=== PATIENT | female | born 1965 | race Caucasian/White ===

== ENCOUNTER → 2024-04-01 | Outpatient (CLI) | payer OTHER, SELFPAY ==
--- NOTE | 2024-04-01 07:30 | XR_ITS ---
Examination: CT maxillofacial, without intravenous contrast. 2-D sagittal reconstructions. 3-D reconstructions. Date and time of exam:April 01, 2024 0750 hours INDICATIONS: Sinus pressure and pain 2 years, bilateral joint clicking temporomandibular joints CTDI: vol (mGy):6.97 DLP: (mGycm):103 Technique: Multiple axial images of maxillofacial region, 3.0 mm slice thickness. 2-D sagittal and coronal reconstructions. 3-D reconstructions. Low dose protocols were performed. One or more of the following dose reduction techniques were used; automated exposure control, adjustment of the mA and/or KV according to patient size, use of iterative reconstruction technique. Findings: Significant chronic mucosal thickening in the ethmoid air cells with partial occlusion of the right ostiomeatal complex Prominent hypertrophy middle and inferior nasal turbinates No significant deviation nasal septum Negative for otitis externa or otitis media Negative for acquired cholesteatoma No dislocation involving temporomandibular joints There are however areas of calcification in the temporomandibular joint meniscus bilaterally IMPRESSION: Significant chronic ethmoid sinusitis with partial occlusion right ostiomeatal complex Calcification of the meniscus in the temporomandibular joint bilaterally, consider MRI temporomandibular joints follow-up open and closed mouth, without intravenous contrast.
== END | disposition home or self-care (01) ==
LOC: CCTX 07:15
PROVIDERS: PCP Family Medicine; Referring Provider Otolaryngology Facial Plastic Surgery; Visit Provider Otolaryngology Facial Plastic Surgery
DX: J32.2 Chronic ethmoidal sinusitis (principal); M26.69 Other specified disorders of temporomandibular joint; J34.89 Other specified disorders of nose and nasal sinuses
CPT/HCPCS: 70486